=== PATIENT | female | born 1940 | race Caucasian/White ===

== ENCOUNTER 2018-04-20 15:02 | Emergency (ER) | payer OTHER, BC ==
[2018-04-20 15:28] VITALS: BP 126/54; PULSE 74; TEMP 98; BMI 25.0
--- NOTE | 2018-04-20 15:31 | PDOC ---
History of Present Illness - General Chief Complaint: Pain Stated Complaint: left lower leg swelling,AND BRUISING FOR 1 WEEK Time Seen by Provider: 04/20/18 15:06 - History of Present Illness Initial Comments: 04/20/18 15:26 77 F with no known PMH presents to ED with LLE swelling. Pt states that she first noticed it around 2 weeks ago. She felt a cramp behind her L calf. Pt states that the pain is worse with standing and walking. Also notes swelling and bruising that have developed in the leg despite no h/o falls or trauma. Pt notes that she is on a baby aspirin a few days a week, but no other AC. She denies CP/SOB. No recent immobilization but reports flying to [place] in February. Pt has no h/o blood clots. She notes that she has a h/o easy bruising and was seeing a brusher machine to have this worked up but was lost to follow up. Past History - Past Medical History Allergies/Adverse Reactions: Allergies Allergy/AdvReac Type Severity Reaction Status Date / Time No Known Allergies Allergy Verified 04/20/18 15:11 Home Medications: Ambulatory Orders Glucosamine Sulfate Dipot Chlr [Glucosamine] 1,000 mg PO DAILY 04/10/13 Multivitamin [Multivitamins] 1 each PO DAILY 04/10/13 Vit D3-Vit K/Berberine/Hops [Ostera Tablet] 1 each PO DAILY 04/10/13 [place]-3S/Dha/Epa/Fish Oil/D3 [Fish Oil + D3 Softgel] 1 cap PO DAILY 06/02/14 Aspirin 81 mg PO DAILY 04/20/18 Ginkgo Biloba 60 mg PO DAILY 04/20/18 Anemia: No Asthma: No Cancer: Yes (LEFT BREAST CANCER) Cardiac Disorders: No CVA: No COPD: No CHF: No Dementia: No Diabetes: No GI Disorders: Yes (GERD/BARRETTS) Disorders: No HTN: No Hypercholesterolemia: No Liver Disease: Yes (COLON POLYPS) Seizures: No Thyroid Disease: No - Surgical History Abdominal Surgery: No Appendectomy: No Cardiac Surgery: No Cholecystectomy: No Lung Surgery: No Neurologic Surgery: No Orthopedic Surgery: No - Suicide/Smoking/Psychosocial Hx Smoking History: Never smoked Have you smoked in the past 12 months: No Information on smoking cessation initiated: No Hx Alcohol Use: No Drug/Substance Use Hx: No Substance Use Type: None Hx Substance Use Treatment: No Review of Systems - Review of Systems Comments:: 04/20/18 15:30 "GENERAL/CONSTITUTIONAL: No fever or chills. No weakness. HEAD, EYES, EARS, NOSE AND THROAT: No change in vision. No ear pain or discharge. No sore throat. CARDIOVASCULAR: No chest pain, no shortness of breath, no loss of consciousness RESPIRATORY: No cough, wheezing, or hemoptysis. GASTROINTESTINAL: No nausea, vomiting, diarrhea or constipation. GENITOURINARY: No dysuria, frequency, or change in urination. MUSCULOSKELETAL: + LLE swelling and pain, No neck or back pain. SKIN: No rash NEUROLOGIC: No vertigo, no change in strength/sensation. ENDOCRINE: No increased thirst. No abnormal weight change. HEMATOLOGIC/LYMPHATIC: No anemia, easy bleeding, or history of blood clots. ALLERGIC/IMMUNOLOGIC: No hives or skin allergy. *Physical Exam - Vital Signs Last Vital Signs Temp Pulse Resp BP Pulse Ox 98 F 74 16 126/54 L 100 04/20/18 15:04 04/20/18 15:04 04/20/18 15:04 04/20/18 15:04 04/20/18 15:04 - Physical Exam Comments: 04/20/18 15:30 "GENERAL: Awake, alert, and fully oriented, in no acute distress. HEAD: No signs of trauma EYES: PERRLA, EOMI, sclera anicteric, conjunctiva clear ENT: Auricles normal inspection, hearing grossly normal, nares patent, oropharynx clear without exudates. Moist mucosa NECK: Nontender, no stepoffs, Normal ROM, supple, no lymphadenopathy, JVD, or masses LUNGS: Breath sounds equal, clear to auscultation bilaterally. No wheezes, and no crackles HEART: Regular rate and rhythm, normal S1 and S2, no murmurs, rubs or gallops ABDOMEN: Soft, nontender, normoactive bowel sounds. No guarding, no rebound. No masses EXTREMITIES: + LLE swelling, + calf tenderness, + ecchymosis to calf, ankle, and robertson, + equal DP pulses bilaterally NEUROLOGICAL: Cranial nerves II through XII intact. 5/5 strength and sensation in all extremities, Normal speech, normal gait, normal cerebellar function SKIN: Warm, Dry, normal turgor, no rashes or lesions noted. ED Treatment Course - LABORATORY CBC & Chemistry Diagram: 04/20/18 15:30 04/20/18 15:30 - RADIOLOGY Radiology Studies Ordered: Category Date Time Status DUPLEX VASCUL US-1 LEG [US] Stat Ultrasound 04/20/18 15:25 Ordered Medical Decision Making - Medical Decision Making 04/20/18 15:31 77 F with LLE swelling and pain. 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 No evidence of compartment syndrome or arterial compromise on exam. Lower suspicion for infectious process as pt with no fevers, no significant erythema or warmth on exam. - Labs, coags - US LLE 04/20/18 16:42 Labs wnl, coags normal US negative for DVT Pt with no clinical signs of cellulitis. Swelling, ecchymosis, and pain of LLE may be due to msk injury ? pulled muscle or tendon. No bony tenderness on exam and no h/o trauma to suggest fx. Will offer ortho f/u for MRI. Pt to f/u with brusher machine to further evaluate her easy bruising. 04/20/18 16:46 Pt is well appearing, with normal vitals. Clinically stable for DC at this time. I discussed the physical exam findings, ancillary test results and final diagnoses with the patient. I answered all of the patient's questions. The patient was satisfied with the care received and felt comfortable with the discharge plan and treatment plan. The patient agrees to follow up with the primary care physician within 24-72 hours. *DC/Admit/Observation/Transfer Diagnosis at time of Disposition: Bruising - Discharge Dispostion Disposition: HOME Condition at time of disposition: Stable - Referrals Referrals: Daniel Cummings MD [Staff Physician] - - Patient Instructions Printed Discharge Instructions: DI for Hematoma (Bruise) Additional Instructions: Please follow up with a brusher machine for further evaluation of your easy bruising. We do not believe your leg swelling and pain is due to a blood clot, as your ultrasound today was normal. Please follow up with an orthopedist, as you may have a musculoskeletal injury. MRI may be helpful in diagnosing this. Call the number provided to make an appointment with our orthopedist. If you experience worsening pain, swelling, redness, fevers, or any other concerning symptoms, return to the ER immediately. - Post Discharge Activity - Attestations Physician Attestion: 04/20/18 16:48 I, Dr. Daniel Lopez MD, attest that this document has been prepared under my direction and personally reviewed by me in its entirety. I further attest, that it accurately reflects all work, treatment, procedures and medical decision -making performed by me.
[2018-04-20 15:56] LABS: BASO % 0.8 % (0-2.0); EOS % 7.3 % (0-4.5); HEMOGLOBIN 14.2 GM/dl (10.7-15.3); MCH 30.3 pg (25.7-33.7); MCHC 32.3 g/dl (32.0-36.0); MEAN PLT VOLUME 8.4 fl (7.5-11.1); MONO % 6.7 % (3.8-10.2); NEUT % 61.2 % (42.8-82.8); PLATELET COUNT 244 K/MM3 (134-434); RBC 4.68 M/mm3 (3.60-5.2); RDW 12.6 % (11.6-15.6); WHITE BLOOD COUNT 7.3 K/mm3 (4.0-10.8)
[2018-04-20 16:22] LABS: ACTIVATED PTT 26.5 SECONDS (25.2-36.5)
[2018-04-20 16:24] LABS: ALBUMIN 3.5 g/dl (3.5-5.0); ALK PHOS 76 U/L (32-92); ANION GAP 6 MMOL/L (8-16); BILIRUBIN,TOTAL 0.8 mg/dl (0.2-1.0); BLOOD UREA NITROGEN 12 mg/dl (7-18); CALCIUM 9.4 mg/dl (8.4-10.2); CHLORIDE 103 mmol/L (98-107); CO2 28 mmol/L (22-28); GLUCOSE,RANDOM 113 mg/dl (74-106); POTASSIUM 3.5 mmol/L (3.5-5.1); SGOT/AST 21 U/L (10-42); SGPT/ALT 22 U/L (10-40); SODIUM 137 mmol/L (136-145); TOT PROT 6.2 g/dl (6.4-8.3)
[2018-04-20 16:27] LABS: INR 1.02 (0.82-1.09); PROTHROMBIN TIME (PATIENT) 11.4 SEC (10.2-13.0)
== END 2018-04-20 16:54 | disposition home or self-care (01) ==
LOC: FER 15:02
DX: S80.12XA Contusion of left lower leg, initial encounter (principal); X58.XXXA Exposure to other specified factors, initial encounter; Y93.9 Activity, unspecified; Y92.9 Unspecified place or not applicable; K21.9 Gastro-esophageal reflux disease without esophagitis; Z85.3 Personal history of malignant neoplasm of breast
CPT/HCPCS: 36415; 80053; 85025; 85610; 85730; 93971-TC; 99282-25